=== PATIENT | male | born 2000 ===

== ENCOUNTER 2023-12-09 00:29 | Emergency (ER) | payer OTHER ==
[2023-12-09 00:41] VITALS: BP 143/84; PULSE 90; RESP 18; TEMP 98.4; BMI 23.0
== END 2023-12-09 01:21 | disposition home or self-care (01) ==
LOC: JER 00:29
DX: S61.211A Laceration without foreign body of left index finger without damage to nail, initial encounter (principal); W26.8XXA Contact with other sharp object(s), not elsewhere classified, initial encounter
CPT/HCPCS: 99283-25